=== PATIENT | female | born 1970 | race African-American/Black ===

== ENCOUNTER 2018-07-25 17:34 | Emergency (ER) | payer MEDICAID ==
[~2018-07-25] VITALS: Ht 165.1 cm; Wt 54.4 kg
[2018-07-25 17:38] VITALS: BP 112/68
[2018-07-25 18:29] LABS: APPEARANCE,URINE Clear (CLEAR); BILIRUBIN,URINE Negative (NEGATIVE); BLOOD, URINE Negative Ery/uL (NEGATIVE); COLOR,URINE Yellow (YELLOW); KETONES,URINE Trace (NEGATIVE); LEUKOCYTE ESTERASE ,URINE Negative (NEGATIVE); NITRITE, URINE Negative (NEGATIVE); PH,URINE 5.5 (5.0-8.0); PROTEIN,URINE Negative (NEGATIVE); UGLUCOSE Negative (NEGATIVE); UROBILINOGEN,URINE 0.2 EU/dL (0.2)
== END 2018-07-25 18:41 | disposition left against medical advice (07) ==
LOC: ER 17:37
DX: R50.9 Fever, unspecified (principal); R05 Cough; F15.10 Other stimulant abuse, uncomplicated; I10 Essential (primary) hypertension; J45.909 Unspecified asthma, uncomplicated; K00.7 Teething syndrome; Z59.0 Homelessness
CPT/HCPCS: 81000-TC; 87400

== ENCOUNTER 2020-01-25 12:32 | Emergency (ER) | payer MEDICAID ==
[~2020-01-25] VITALS: Ht 165.1 cm; Wt 49.9 kg
[2020-01-25 12:36] VITALS: BP 124/83
[2020-01-25] MEDS ORDERED: IBUPROFEN 600 MG TABLET ONE (13:08)
--- NOTE | 2020-01-25 13:25 | NUR ---
Patient discharged to home in stable condition. Written and verbal after care instructions given. Patient verbalizes understanding of instruction. Pt ambulatory with a steady gait w/ an aide of a cane
--- NOTE | 2020-01-25 13:25 | NUR ---
homeless waiver signed by ot, provided with meal and shoes
[2020-01-25] MEDS ORDERED: IBUPROFEN 600 MG TABLET PO ONE (14:00)
== END 2020-01-25 13:25 | disposition home or self-care (01) ==
LOC: ER 12:34
DX: S93.492A Sprain of other ligament of left ankle, initial encounter (principal); I10 Essential (primary) hypertension; J45.909 Unspecified asthma, uncomplicated; Z59.0 Homelessness; X50.1XXA Overexertion from prolonged static or awkward postures, initial encounter; Y93.89 Activity, other specified; Y92.89 Other specified places as the place of occurrence of the external cause; Y99.8 Other external cause status
CPT/HCPCS: 73610-TC

== ENCOUNTER 2020-05-18 11:05 | Emergency (ER) | payer MEDICAID ==
[~2020-05-18] VITALS: Ht 165.1 cm; Wt 51.7 kg
[2020-05-18 11:09] VITALS: BP 132/79
--- NOTE | 2020-05-18 11:17 | NUR ---
AT BEDSIDE FOR EVAL.
--- NOTE | 2020-05-18 11:25 | NUR ---
social worker clinical at bedside speaking to patient.
--- NOTE | 2020-05-18 11:36 | NUR ---
Patient given written and verbal discharge instructions. Patient verbalizes understanding of instructions. Patient is ambulatory with steady gait. Refuses offer of half-way placement. Patient given list of available shelters in surrounding area.
--- NOTE | 2020-05-18 12:00 | NUR ---
"Social Service Consult: vice president consulting services consult requested for homelessness. Patient is a 49-year-old, -[place] female. SW met with the patient bedside in the emergency department. Patient is alert and oriented x4. Patient is calm and watching television. Patient is disheveled and asks for more food. Patient came to the emergency department on 05/18/2020 for flu like symptoms. Patient stated that she is currently homeless. Patient stated that she was vomiting and felt sick. Patient stated that she does not have access to adequate support at this time. Patient requires a cane or walker to ambulate. Patient reports that she been receiving [employer] as a source of income. SW asked the patient about her history of substance use and the patient stated that she smokes cigarettes daily and one time per day. SW asked the patient about her history of mental illness and she stated she has schizophrenia and is not currently taking psychiatric medication. Patient denies any current hallucinations and delusions. Patient denies any current thoughts of suicide or homicide. SW discussed homeless resources with the patient. Patient accepted the resources and thanked this SW. SW discussed addiction resources (for drugs and alcohol) with the patient. Patient thanked this SW and declined the packet at this time. PLAN: Patient will be returning to her prior living arrangements. Patient signed the homeless waiver. SW filed the waiver in the patients chart. [place] [facility]: Vanita Elizabeth [place] Provider: [facility] Sylvia SALAS Address: [address] [place] [address] Luis Alberto [place], [address] # of Beds: 47 Population Served: [facility] 6 | [facility] Jessica Loera [place] Provider: [facility] Address: [address] [place] [address], [address] # of Beds: 66 Population Served: [facility] [employer] [place] Provider: [facility] Serve Address: [address] [facility], [address] # of Beds: 56 Population Served: [facility] [place] Provider: /Moe [facility] [place] Address: [address] [facility], [address] # of Beds: 49 Population Served: [facility] 8 | [facility] Provider: First [facility] Serve Address: [address] [place] [address]. Toy [facility] # of Beds: 37 Population Served: [facility] [address] [address]. [place] ; [facility] [address] [facility] ; [facility] [address], [place] . Food Resources: [place] [facility] at [facility]- [address]; [facility] Each Need with [facility] ([facility]) [address] [facility]; [facility] [address] [facility]; [facility] [address] [facility] Mental Health resources provided: [facility] [address] [place], [place] [address] ; [facility] [address] [facility] [address], [place], [place] [id number] ; [employer] [employer] [facility] [address] [address] [place] [id number] ; [facility] [address] [place], [place] [address] Healthcare Clinics: [facility] [address] [facility], [address] [place]. [place] ; [facility] [address] [facility] [address] [place] [address]; [facility] [address] [facility]. [place] [address] [phone]"
== END 2020-05-18 11:37 | disposition home or self-care (01) ==
LOC: ER 11:09
DX: R11.10 Vomiting, unspecified (principal); Z59.0 Homelessness; I10 Essential (primary) hypertension; J45.909 Unspecified asthma, uncomplicated; Z60.2 Problems related to living alone